=== PATIENT | male | born 1985 | race Caucasian/White ===

== ENCOUNTER 2017-06-11 04:17 | Emergency (ER) | payer OTHER ==
[~2017-06-11] VITALS: Ht 177.8 cm; Wt 78.0 kg
[2017-06-11 04:19] VITALS: Ht 177.8 cm; Wt 78.0 kg
--- NOTE | 2017-06-11 04:56 | ERD ---
ER Documentation Chief Complaint Date/Time DATE: 06/11/17 TIME: 04:52 Chief Complaint Pt feels weak and thinks he had a panic attack HPI 32-year-old male presents to emergency department for complaints of generalized weakness, numbness and tingling all over the body, palpitations, patient states that he has had the same symptoms before, has history of panic attacks. Patient has history of anxiety. Patient does not take any medications up and symptoms. Patient denies any chest pain. Patient denies any dyspnea exertion or dyspnea lying down. Patient denies any fever or chills. Patient denies any shortness of breath. ROS All systems reviewed and are negative except as per history of present illness. Medications Home Meds Active Scripts Alprazolam* (Xanax*) 1 Mg Tab, 1 MG PO Q8H Y for ANXIETY, #15 TAB Prov:MANUEL ANDRES NP 06/11/17 Reported Medications [none] Unknown Strength No Conflict Check 06/11/17 Allergies Allergies: Coded Allergies: No Known Allergy (Unverified , 01/27/15) PMhx/Soc Medical and Surgical Hx: pt denies Medical Hx, pt denies Surgical Hx Hx Alcohol Use: Yes Hx Substance Use: No Hx Tobacco Use: No FmHx Family History: No coronary disease, No diabetes, No other Physical Exam Vitals Vital Signs Date Time Temp Pulse Resp B/P Pulse Ox O2 Delivery O2 Flow Rate FiO2 06/11/17 05:25 85 16 123/70 96 Room Air 06/11/17 04:19 98.3 115 18 139/82 96 Physical Exam GENERAL: The patient is well developed and appropriate for usual state of health, in no apparent distress. CHEST: Clear to auscultation bilaterally. There are no rales, wheezes or rhonchi. HEART: Tachycardic rate with regular rhythm. No murmurs, clicks, rubs or gallops. No S3 or S4. ABDOMEN: Soft, nontender and nondistended. Good bowel sounds. No rebound or guarding. No gross peritonitis. No gross organomegaly or masses. No Baez sign or McBurney point tenderness. BACK: No midline or flank tenderness. EXTREMITIES: Equal pulses bilaterally. There is no peripheral clubbing, cyanosis or edema. No focal swelling or erythema. Full range of motion. Grossly neurovascularly intact. NEURO: Alert and oriented. Cranial nerves 2-12 intact. Motor strength in all 4 extremities with 5/5 strength. Sensation grossly intact. Normal speech and gait. SKIN: There is no apparent rash or petechia. The skin is warm and dry. HEMATOLOGIC AND LYMPHATIC: There is no evidence of excessive bruising or lymphedema. No gross cervical, axillary, or inguinal lymphadenopathy. PSYCH; patient appears very anxious, has tremors, not verbalizing homicidal or suicidal ideations. Results 24 hrs Current Medications Medications (Trade) Dose Ordered Sig/Perry Route PRN Reason Start Time Stop Time Status Last Admin Dose Admin Alprazolam (Xanax) 1 mg ONCE ONCE PO 06/11/17 05:00 06/11/17 05:01 DC EKG was done, read by me and is and is tachycardiac rate of 111 bpm, normal axis , there is no ST changes or changes in the EKG that indicates any cardiac emergencies at this time. Patient's EKG was also reviewed by Dr. Okeefe. Impression: no acute findings on EKG Xanax given here in emergency department, verbalizing much better afterwards. Procedures/MDM Medical decision making: Patient symptoms most likely is consistent with anxiety. No symptoms of any cardiopulmonary emergencies at this time.No suspicion for pulmonary embolism, CHF, acute coronary syndrome. Low suspicion for any sepsis at this time. No symptoms of fever, patient appears well and is hemodynamically stable. Prescription was given for Xanax, was advised to follow- up with Dr. panchal in 2-3 days, possibly see client engagement specialist. Patient was advised to return to emergency department for any worsening symptoms. Disposition: Home. Stable. Departure Diagnosis: Primary Impression: Anxiety Condition: Stable Patient Instructions: Anxiety Reaction MANUEL ANDRES NP Jun 11, 2017 04:56
[2017-06-11] MEDS ORDERED: ALPRAZOLAM 1 MG TAB PO ONE (05:00)
[2017-06-11] MEDS ORDERED: ALPR1TAB2 PO (05:06)
[2017-06-11 05:25] VITALS: BP 123/70; PULSE 85; RESP 16
== END 2017-06-11 05:27 | disposition home or self-care (01) ==
LOC: FTE 04:17
DX: F41.9 Anxiety disorder, unspecified (principal)
CPT/HCPCS: 93005

== ENCOUNTER 2017-11-07 21:06 | Emergency (ER) | payer SELFPAY ==
[~2017-11-07] VITALS: Ht 172.7 cm; Wt 80.0 kg
[~2017-11-07 21:06] MED LIST: ALPR1TAB2 PO
[2017-11-07 21:16] VITALS: Ht 172.7 cm; Wt 80.0 kg
== END 2017-11-07 23:51 | disposition left against medical advice (07) ==
LOC: FTE 21:06
DX: Z53.21 Procedure and treatment not carried out due to patient leaving prior to being seen by health care provider (principal)